=== PATIENT | female | born 1970 | race Caucasian/White ===

== ENCOUNTER 2020-10-06 16:55 | Emergency (ER) | payer OTHER, SELFPAY ==
--- NOTE | ~2020-10-06 | XR_ITS ---
EXAMINATION: XR finger 4th RT min 2V DATE: 10/06/2020 17:25 INDICATION: Injury to the right hand 2 weeks prior with swelling at the fourth digit TECHNIQUE: Dorsal palmar, lateral and 2 oblique views of the right fourth digit were obtained COMPARISON: None FINDINGS: Alignment is normal. No fracture. Mild polyarticular osteoarthritis at the interphalangeal joints and a fourth digit as well as at the fifth distal interphalangeal, triscaphe and first carpal metacarpal joints. Soft tissue swelling about the fourth proximal interphalangeal joint. IMPRESSION: 1. Mild polyarticular osteoarthritis. No acute osseous abnormality. Reviewed, dictated and finalized at location . T SUPERVISOR
[2020-10-06 16:58] VITALS: BP 147/84; PULSE 84; RESP 18; TEMP 36.4; O2SAT 99
--- NOTE | 2020-10-06 17:59 | ED.UPPEXIN ---
HPI - Extremity Injury (Upper) General Chief Complaint: Extremity Injury, Upper Stated Complaint: right ring finger pain/swelling Source: patient Mode of arrival: ambulatory Limitations: no limitations History of Present Illness HPI narrative: Patient is a 50-year-old female who presents complaining of right ring finger pain x2 weeks. She reports injuring finger with dog leash approximately 2 weeks ago. She reports increased pain and swelling over the past week or 2. Marked bruising noted. She denies taking [id number] medications for pain at this time. Related Data Home Medications Medication Instructions Recorded Confirmed No Home Medications 10/06/20 10/06/20 Allergies Allergy/AdvReac Type Severity Reaction Status Date / Time ibuprofen Allergy Seizure Verified 10/06/20 17:09 latex Allergy Itching Verified 10/06/20 17:09 Review of Systems Review of Systems: Narrative: CONSTITUTIONAL: Denies fever, chills, or sweats. EYES: Denies visual changes, redness, or discharge. ENT: Denies rhinorrhea, congestion, sore throat, or otalgia. CARDIOVASCULAR: Denies chest pain, palpitations, or edema. RESPIRATORY: Denies cough or dyspnea. GASTROINTESTINAL: Denies abdominal pain, nausea, vomiting, or diarrhea. GENITOURINARY: Denies dysuria or hematuria. SKIN: Denies rash or itching. MUSCULOSKELETAL: Right ring finger pain NEUROLOGIC: Denies headache, numbness, dizziness, or weakness. PSYCHIATRIC: Denies anxiety or depression. [facility] Past Medical History Medical History (Updated 10/06/20 @ 18:06 by BEST Molina) Skin cancer Surgical History Surgical History (Updated 10/06/20 @ 18:02 by BEST Molina) No significant past surgical history Social History Social History (Updated 10/06/20 @ 18:03 by BEST Molina) Smoking status: Current every day smoker Tobacco type: e-cigarettes/vaping Alcohol intake: current Substance use: never Living arrangements: alone Exam Narrative: Exam Narrative: GENERAL: Well-appearing, well-nourished, and in no acute distress. HEAD: Normocephalic, atraumatic. EYES: Conjunctiva are normal. ENT: Mucous membranes pink and moist. CHEST: No respiratory distress. EXTREMITIES: Edema and ecchymosis to lateral right fourth digit SKIN: Warm, dry, no rash. NEURO: No focal deficits. Alert and oriented x3. Gait steady. PSYCH: Normal affect. No signs of depression or anxiety. Course Vital Signs Vital signs: Vital Signs Temperature 36.4 C 10/06/20 16:58 Pulse Rate 84 10/06/20 16:58 Respiratory Rate 18 10/06/20 16:58 Blood Pressure 147/84 H 10/06/20 16:58 Pulse Oximetry 99 10/06/20 16:58 Temperature 36.4 C 10/06/20 16:58 Pulse Rate 84 10/06/20 16:58 Respiratory Rate 18 10/06/20 16:58 Blood Pressure 147/84 H 10/06/20 16:58 Pulse Oximetry 99 10/06/20 16:58 Reviewed. Patient has been instructed to follow-up with her PCP regarding her blood pressure. MDM - Extremity Injury (Upper) MDM Narrative Medical decision making narrative: Patient's x-ray shows no acute fracture. X-ray shows osteoarthritis. Discussed plan of care with patient. Patient is stable for discharge home with outpatient follow-up. Differential Diagnosis Differential diagnosis: Likely finger sprain, dislocation of finger, fracture of hand and other (Arthritis) Critical Care Time Critical Care Time Critical Care Time: No Discharge Plan Discharge Clinical Impression: Arthritis of finger of right hand Patient Disposition: Home, Self-Care Condition: Stable Instructions: Arthritis (ED) Prescriptions: No Action No Home Medications RF: 0 Follow-up/Referrals: Mike Nolen MD [Primary Care Provider] - Time of Disposition: 18:07
== END 2020-10-06 18:18 | disposition home or self-care (01) ==
PROVIDERS: Emergency Provider Nurse Practitioner; PCP Family Medicine
DX: M19.041 Primary osteoarthritis, right hand (principal); Z85.828 Personal history of other malignant neoplasm of skin; F17.200 Nicotine dependence, unspecified, uncomplicated
CPT/HCPCS: 73140; 99213; G0463

== ENCOUNTER → 2022-03-09 15:09 | Outpatient (CLI) | payer OTHER, SELFPAY ==
--- NOTE | ~2022-03-09 | XR_ITS ---
EXAMINATION: XR shoulder LT min 2V DATE: 03/09/2022 15:38 INDICATION: Left shoulder pain. TECHNIQUE: 4 views of left shoulder were obtained. COMPARISON: None. FINDINGS: Bone alignment is normal. No fracture. There is mild osteoarthritis of glenohumeral joint a nd moderate osteoarthritis of acromioclavicular joint. IMPRESSION: 1. Polyarticular osteoarthritis. Reviewed, dictated and finalized at location B.
== END ==
PROVIDERS: PCP Family Medicine; Visit Provider Physician Assistant
DX: M19.012 Primary osteoarthritis, left shoulder (principal)
CPT/HCPCS: 73030

== ENCOUNTER 2022-06-05 07:13 | Outpatient (CLI) | payer OTHER, SELFPAY ==
--- NOTE | ~2022-06-05 | MR_ITS ---
EXAMINATION: MR shoulder LT wo con DATE: 06/05/2022 08:49 INDICATION: Left shoulder pain and weakness TECHNIQUE: Magnetic resonance imaging (MRI) of the left shoulder was performed without intravenous co ntrast. Sequences included axial PD-weighted FS FSE, coronal oblique PD-weighted FS FSE, coronal obli que T2-weighted FS FSE, sagittal PD-weighted FS FSE, and sagittal T1-weighted SE. COMPARISON: Left shoulder radiographs dated 03/09/2022 FINDINGS: Coracoacromial arch: The acromion undersurface is curved in morphology (type II). Large anterior subacromial spur along th e distal aspect of the otherwise normal coracoclavicular ligament. Additional small subacromial spur versus enthesopathic ossicle along the lateral margin of the acromion. Mild to moderate acromioclavic ular osteoarthritis. Rotator cuff: Mild to moderate tendinopathy of the subscapularis, supraspinatus and infraspinatus tendons. There is a small full-thickness tear along the superior facet footplate of the supraspinatus tendon which sweta sures 10 mm AP and 7 mm medial to lateral. The teres minor tendon is normal. Normal rotator cuff musc le bulk and signal. Biceps tendon, glenoid labrum and glenohumeral cartilage: Mild tendinopathy and likely longitudinal split tear of the intra-articular and extra articular porti ons of the long head biceps tendon. There is a tear of the superior to posterior glenoid labrum. Thin linear fluid signal extending across the base of the anterosuperior labrum which could represent eit her continuation the tear or a normal sublabral foramen. Mild nonuniform partial-thickness cartilage loss with smooth chondral surface at the superior glenoid and inferomedial aspect of the humeral head . Fluid: Physiologic amount of fluid in the glenohumeral joint and biceps tendon sheath. No loose osteochondr al bodies. Small amount of fluid in the subacromial/subdeltoid bursa consistent with moderate bursiti s. Bones: Normal marrow signal with no edema, fracture or abnormal marrow replacing process. IMPRESSION: 1. Mild to moderate rotator cuff tendinopathy with small full-thickness tear along the superior facet footplate of the supraspinatus tendon. 2. Mild glenohumeral osteoarthritis with tear of the superior to posterior glenoid labrum. 3. Mild tendinopathy and likely longitudinal split tearing of the long head biceps tendon. 4. Moderate subacromial/subdeltoid bursitis. Reviewed, dictated and finalized at location A. IMPRESSION: 1. Mild to moderate rotator cuff tendinopathy with small full-thickness tear al colten the superior facet footplate of the supraspinatus tendon. 2. Mild glenohumeral osteoarthritis with tear of the superior to posterior raudel oid labrum. 3. Mild tendinopathy and likely longitudinal split tearing of the long head bic eps tendon. 4. Moderate subacromial/subdeltoid bursitis.
== END 2022-06-05 07:14 | disposition home or self-care (01) ==
PROVIDERS: PCP Family Medicine; Visit Provider Physician Assistant
DX: R29.898 Other symptoms and signs involving the musculoskeletal system (principal); S49.92XA Unspecified injury of left shoulder and upper arm, initial encounter; X58.XXXA Exposure to other specified factors, initial encounter; M19.012 Primary osteoarthritis, left shoulder; M75.52 Bursitis of left shoulder
CPT/HCPCS: 73221

== ENCOUNTER 2022-09-22 10:53 | Outpatient (NON) | payer OTHER, SELFPAY | END 2022-09-22 10:54 | disposition home or self-care (01) | LOC: ANHLAB 09-23 11:01 | PROVIDERS: PCP Family Medicine; Visit Provider Nurse Practitioner | DX: C44.311 Basal cell carcinoma of skin of nose (principal) | CPT/HCPCS: 88305 ==

== ENCOUNTER 2022-10-17 14:54 | Outpatient (NON) | payer OTHER, SELFPAY | END 2022-10-17 14:55 | disposition home or self-care (01) | LOC: ANHLAB 14:54 | PROVIDERS: PCP Family Medicine; Visit Provider Nurse Practitioner | DX: C44.311 Basal cell carcinoma of skin of nose (principal) | CPT/HCPCS: 88305; 88331 ==

== ENCOUNTER 2024-01-09 08:05 | Outpatient (CLI) | payer OTHER, SELFPAY ==
--- NOTE | 2024-01-09 08:14 | EST_ITS ---
Patient Info Name: Marion Garcia Age: 53 years : 1970 Gender: Female Ht: 65 in Wt: 141 lbs BSA: 1.72 m2 HR: 86 bpm BP: 138 / 93 mmHg Heart Rhythm: Sinus Rhythm Exam Date: 01/09/2024 8:24 AM Exam Location: [facility] Patient Status: Outpatient Admit Date: 01/09/2024 Staff Ordering Physician: Shira Hurley PA-C Attending Provider: Shira Hurley PA-C Exercise Technologist: Fabby Clemens CT Exercise Physician: Erasto Jefferson DO Exam Type: CA stress test treadmill Study Info Indications R07.89 - Other chest pain A treadmill exercise stress test was performed. Summary 1. 1. Negative Braden exercise stress test for ischemic ST changes by ECG criteria. 2. 2. Reduced functional capacity, achieving 7 METs of workload. 3. 3. Appropriate HR response to exercise. 4. 4. Appropriate HR recovery at 1 minute post exercise. 5. 5. No imaging with stress testing. 6. 6. Patient informed of the above results. Protocol: Braden Stress ECG Details Stage: REST Duration (min): 4 min : 57 sec Speed (mph): 0.0 Grade (%): 0 HR (bpm): 95 SBP (mmHg): 138 DBP (mmHg): 93 METS: --- Stage: REST Duration (min): 5 min : 17 sec Speed (mph): 0.0 Grade (%): 0 HR (bpm): 100 SBP (mmHg): 138 DBP (mmHg): 93 METS: --- Stage: STAGE 1 Duration (min): 1 min : 0 sec Speed (mph): 1.7 Grade (%): 10 HR (bpm): 117 SBP (mmHg): 138 DBP (mmHg): 93 METS: --- Stage: STAGE 1 Duration (min): 2 min : 0 sec Speed (mph): 1.7 Grade (%): 10 HR (bpm): 134 SBP (mmHg): 138 DBP (mmHg): 93 METS: --- Stage: STAGE 1 Duration (min): 3 min : 0 sec Speed (mph): 1.7 Grade (%): 10 HR (bpm): 141 SBP (mmHg): 170 DBP (mmHg): 77 METS: --- Stage: STAGE 2 Duration (min): 1 min : 0 sec Speed (mph): 2.5 Grade (%): 12 HR (bpm): 154 SBP (mmHg): 170 DBP (mmHg): 77 METS: --- Stage: STAGE 2 Duration (min): 2 min : 0 sec Speed (mph): 2.5 Grade (%): 12 HR (bpm): 161 SBP (mmHg): 171 DBP (mmHg): 77 METS: --- Stage: STAGE 2 Duration (min): 2 min : 0 sec Speed (mph): 2.5 Grade (%): 12 HR (bpm): 161 SBP (mmHg): 171 DBP (mmHg): 77 METS: --- Stage: RECOVERY Duration (min): 0 min : 59 sec Speed (mph): 0.0 Grade (%): 0 HR (bpm): 137 SBP (mmHg): 171 DBP (mmHg): 77 METS: --- Stage: RECOVERY Duration (min): 1 min : 59 sec Speed (mph): 0.0 Grade (%): 0 HR (bpm): 109 SBP (mmHg): 171 DBP (mmHg): 77 METS: --- Stage: RECOVERY Duration (min): 2 min : 45 sec Speed (mph): 0.0 Grade (%): 0 HR (bpm): 110 SBP (mmHg): 145 DBP (mmHg): 86 METS: --- Rest HR: 100 bpm Peak HR: 162 bpm Rest Sys BP: 138 mmHg Peak Sys BP: 171 mmHg Max Pred HR: 166 bpm % Max Pred HR: 98 % Target HR: 141 bpm Max RPP: 27,702 bpm*mmHg Morales Score: -3 Termination Reason: Reached target heart rate or workload Cardiac Symptoms: Shortness of breath Max ST Seg Deviation: -1.50 mm Total Time: 5 min
== END 2024-01-09 08:06 | disposition home or self-care (01) ==
PROVIDERS: PCP Family Medicine; Visit Provider Physician Assistant
DX: R07.89 Other chest pain (principal)
CPT/HCPCS: 93017

== ENCOUNTER 2025-07-22 16:43 | Outpatient (CLI) | payer OTHER, SELFPAY ==
--- NOTE | ~2025-07-22 | XR_ITS ---
EXAM/ PROCEDURE: XR foot LT 2V - 07/22/2025 16:47 CDT HISTORY: 54 years old Female with M79.673 - Pain in unspecified foot COMPARISON: None available TECHNIQUE: Three view(s) FINDINGS/ IMPRESSION: There are no fractures or dislocations.Joint space narrowing, subchondral sclerosis, subchondral cyst formation and osteophyte formation, compatible with mild osteoarthritis. Achilles tendon enthesopathy. Reviewed, dictated and finalized at location N.
== END 2025-07-22 16:44 | disposition home or self-care (01) ==
LOC: MICIMG 16:44
PROVIDERS: PCP Family Medicine
DX: M76.62 Achilles tendinitis, left leg (principal)
CPT/HCPCS: 73620